=== PATIENT | female | born 1985 | race Caucasian/White ===

== ENCOUNTER → 2017-06-14 | Outpatient (CLI) | payer MEDICAID | LOC: FIMAGING 14:28 | PROVIDERS: ATTEND Family Medicine | DX: O31.21X2 Continuing pregnancy after intrauterine death of one fetus or more, first trimester, fetus 2 (principal); O30.041 Twin pregnancy, dichorionic/diamniotic, first trimester; Z3A.10 10 weeks gestation of pregnancy ==

== ENCOUNTER 2017-07-05 14:35 | Emergency (ER) | payer MEDICAID ==
[2017-07-05] MEDS ORDERED: NS 1,000 ML IV ONE (15:34)
--- NOTE | 2017-07-05 15:40 | EDPHY ---
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 No cramping. No fevers. She has received 3 ultrasounds for this . Initially she was with twins but at about 7 weeks had demise of 1 of the twins. The other 1 seem to be doing well. This was a natural . They told her she may pass some blood but she has not until today. Her 1st child was natural vaginal delivery. No abdominal pain or cramping. No vomiting. She states that the bleeding has now practically stopped. She brought the clot with her and is Ziploc bag. It simply looks like clotted blood no tissue. REVIEW OF SYSTEMS: Constitutional: denies: chills, fever, recent illness, recent injury EENTM: denies: blurred vision, double vision, nose congestion Respiratory: denies: cough, shortness of breath Cardiac: denies: chest pain, irregular heart rate, lightheadedness, palpitations Gastrointestinal/Abdominal: denies: abdominal pain, diarrhea, nausea, vomiting, blood streaked stools Genitourinary: See HPI denies: dysuria, frequency, hematuria, pain Musculoskeletal: denies: joint pain, muscle pain Skin: denies: lesions, rash, jaundice, bruising Neurological: denies: headache, numbness, paresthesia, tingling, dizziness, weakness Hematologic/Lymphatic: denies: blood clots, easy bleeding, easy bruising Immunologic/allergic: denies: HIV/AIDS, transplant EXAM: GENERAL: Well-appearing, well-nourished and in no acute distress. HEAD: Atraumatic, normocephalic. EYES: Pupils equal round and reactive to light, extraocular movements intact, sclera anicteric, conjunctiva are normal. ENT: TMs normal, nares patent, oropharynx clear without exudates. Moist mucous membranes. NECK: Normal range of motion, supple without lymphadenopathy or JVD. LUNGS: Breath sounds clear to auscultation bilaterally and equal. No wheezes rales or rhonchi. HEART: Regular rate and rhythm without murmurs, rubs or gallops. ABDOMEN: Soft, nontender, normoactive bowel sounds. No guarding, no rebound. No masses appreciated. : BACK: No CVA tenderness, no spinal tenderness, step-offs or deformities EXTREMITIES: Normal range of motion, no pitting or edema. No clubbing or cyanosis. NEUROLOGICAL: Cranial nerves II through XII grossly intact. Normal speech, normal gait. 5/5 strength, normal movement in all extremities, normal sensation PSYCH: Normal mood, normal affect. SKIN: Warm, dry, normal turgor, no visible rashes or lesions. Source: Patient Exam Limitations: No limitations - Personal History LMP (Females 10-55): Current Tetanus/Diphtheria Vaccine: Yes Current Tetanus Diphtheria and Acellular Pertussis (TDAP): Yes Tetanus Vaccine Date: 2012 - Medical/Surgical History Hx Asthma: Yes Hx Chronic Respiratory Disease: No Hx Diabetes: No Hx Cardiac Disease: No Hx Renal Disease: No Hx Cirrhosis: No Hx Alcoholism: No Hx HIV/AIDS: No Hx Splenectomy or Spleen Trauma: No Other PMH: tonsillectomy, asthma - Family History Significant Family History: No pertinent family hx - Social History Smoking Status: Current every day smoker Alcohol Use: Sober Drug Use: None Constitutional: Initial Vital Signs Temperature (C) 36.7 C 07/05/17 14:38 Heart Rate 108 H 07/05/17 14:38 Respiratory Rate 20 07/05/17 14:38 Blood Pressure 138/82 H 07/05/17 14:38 O2 Sat (%) 98 07/05/17 14:38 O2 Delivery Mode Room Air Allergies/Adverse Reactions: No Known Allergies Allergy (Verified 07/05/17 14:37) Home Medications: Medication Instructions Recorded Advair Hfa 115-21 Mcg Inhaler 07/05/17 Albuterol 07/05/17 Ranitidine HCl 07/05/17 Medical Decision Making - Diagnostics Imaging Results: Imaging Impressions Obstetrics Ultrasound 07/05/17 15:35 Impression: 1. Viable gestation measuring at 14 weeks 0 days. Estimated delivery date is . 2. No residual sonographic evidence of known twin A demise or gestational sac. Imaging: Discussed imaging studies w/ call center analyst Radiologist ED Course/Re-evaluation: 5:00 p.m. the patient is very much relieved. We discussed doing a pelvic exam and agreed not to at this point. Cervix is closed on ultrasound. I do worry about introducing infection for the 2nd . No intervention would be done if it was slightly open. 5:20 p.m. I spoke with Dr. Joyce from the [facility]. He agrees with the treatment thus far and also recommends RhoGAM. The patient had RhoGAM with her 1st . She states that the bleeding has now stopped. Differential Diagnosis: Partial list of the Differential diagnosis considered include but were not limited to; miscarriage, demise and although unlikely based on the history and physical exam, I also considered infection, urinary tract infection. I discussed these differential diagnoses and the plan with the patient as well as the usual and expected course. The patient understands that the diagnosis is provisional and that in medicine we are not always correct and that further workup is often warranted. Usual and customary warnings were given. All of the patient's questions were answered. The patient was instructed to return to the emergency department should the symptoms at all worsen or return, otherwise to followup with the physician as we discussed. - Data Points Laboratory Results: Laboratory Results 07/05/17 15:34 07/05/17 15:34 07/05/17 07/05/17 07/05/17 15:47 15:47 15:34 WBC RBC Hgb Hct MCV MCH MCHC RDW Plt Count MPV Neut % (Auto) Lymph % (Auto) [place] % (Auto) Eos % (Auto) Baso % (Auto) Nucleat RBC Rel Count Absolute Neuts (auto) Absolute Lymphs (auto) Absolute Monos (auto) Absolute Eos (auto) Absolute Basos (auto) Absolute Nucleated RBC Immature Gran % Immature Gran # Sodium 137 mEq/L mEq/L (135-145) Potassium 3.7 mEq/L mEq/L (3.3-5.0) Chloride 105 mEq/L mEq/L (97-110) Carbon Dioxide 20 mEq/l L mEq/l (22-31) Anion Gap 12 mEq/L mEq/L (8-16) BUN 7 mg/dL mg/dL (7-23) Creatinine 0.4 mg/dL L mg/dL (0.6-1.0) Estimated GFR > 60 Glucose 131 mg/dL H mg/dL (70-100) Calcium 9.8 mg/dL mg/dL (8.5-10.4) Patient ABO/Rh A NEGATIVE A NEGATIVE Antibody Screen Pending Bld Prod Order Rhogam Pending 07/05/17 15:34 WBC 8.43 10^3/uL 10^3/uL (3.80-9.50) RBC 4.33 10^6/uL 10^6/uL (4.18-5.33) Hgb 12.9 g/dL g/dL (12.6-16.3) Hct 37.1 % L % (38.0-47.0) MCV 85.7 fL fL (81.5-99.8) MCH 29.8 pg pg (27.9-34.1) MCHC 34.8 g/dL g/dL (32.4-36.7) RDW 12.7 % % (11.5-15.2) Plt Count 355 10^3/uL 10^3/uL (150-400) MPV 10.4 fL fL (8.7-11.7) Neut % (Auto) 69.0 % % (39.3-74.2) Lymph % (Auto) 22.1 % % (15.0-45.0) [place] % (Auto) 5.3 % % (4.5-13.0) Eos % (Auto) 2.7 % % (0.6-7.6) Baso % (Auto) 0.5 % % (0.3-1.7) Nucleat RBC Rel Count 0.0 % % (0.0-0.2) Absolute Neuts (auto) 5.82 10^3/uL 10^3/uL (1.70-6.50) Absolute Lymphs (auto) 1.86 10^3/uL 10^3/uL (1.00-3.00) Absolute Monos (auto) 0.45 10^3/uL 10^3/uL (0.30-0.80) Absolute Eos (auto) 0.23 10^3/uL 10^3/uL (0.03-0.40) Absolute Basos (auto) 0.04 10^3/uL 10^3/uL (0.02-0.10) Absolute Nucleated RBC 0.00 10^3/uL 10^3/uL (0-0.01) Immature Gran % 0.4 % % (0.0-1.1) Immature Gran # 0.03 10^3/uL 10^3/uL (0.00-0.10) Sodium Potassium Chloride Carbon Dioxide Anion Gap BUN Creatinine Estimated GFR Glucose Calcium Patient ABO/Rh Antibody Screen Bld Prod Order Rhogam Medications Given: Discontinued Medications Sodium Chloride (Ns) 1,000 mls @ 0 mls/hr IV ONCE ONE; Wide Open PRN Reason: Protocol Stop: 07/05/17 15:35 Last Admin: 07/05/17 15:51 Dose: 1,000 mls Departure - Departure Disposition: Home, Routine, Self-Care Clinical Impression: Miscarriage Qualifiers: Weeks of gestation: 14 weeks Qualified Code(s): Z3A.14 - 14 weeks gestation of Condition: Fair Instructions: Miscarriage (ED) Referrals: Joellen Lawson DO [Primary Care Provider] - 2-3 days, call for appt.
[2017-07-05 16:03] LABS: PLATELET COUNT 355 10^3/uL (150-400)
[2017-07-05 18:49] VITALS: BP 116/76
== END 2017-07-05 18:47 | disposition home or self-care (01) ==
DX: O03.9 Complete or unspecified spontaneous abortion without complication (principal); E86.9 Volume depletion, unspecified; J45.909 Unspecified asthma, uncomplicated; F17.200 Nicotine dependence, unspecified, uncomplicated; Z3A.14 14 weeks gestation of pregnancy

== ENCOUNTER → 2017-07-20 | Outpatient (CLI) | payer MEDICAID | LOC: FIMAGING 14:11 | PROVIDERS: ATTEND Family Medicine | DX: O20.9 Hemorrhage in early pregnancy, unspecified (principal); Z3A.15 15 weeks gestation of pregnancy ==